=== PATIENT | female | born 1960 | race Caucasian/White ===

== ENCOUNTER 2021-02-08 19:30 | Emergency (ER) | payer BC ==
[~2021-02-08] VITALS: Ht 157.5 cm; Wt 72.2 kg
[2021-02-08 20:31] LABS: BILIRUBIN,URINE MODERATE (NEG); CLARITY,URINE CLOUDY; COLOR,URINE AMBER; NITRITE,URINE NEGATIVE (NEG); PH,URINE 5.5 (<5.0-8.0); PROTEIN,URINE 100 mg/dL (NEG-TRACE)
[2021-02-08 20:41] LABS: RBC,URINE TNTC /HPF (0-2)
[2021-02-08 20:44] LABS: BACTERIA,URINE FEW /HPF (0-FEW)
[2021-02-08] MEDS: IV NORMAL SALINE 1000ML BAG 1,000 ML IV ONE (21:00)
[2021-02-08 21:18] LABS: BASO # 0.1 x10^3/uL (0.0-0.2); BASO % 1 % (0-3); EOS # 0.2 x10^3/uL (0.0-0.7); EOS % 2 % (0-3); HEMATOCRIT 40.3 % (36.0-47.0); HEMOGLOBIN 13.6 g/dL (12.0-15.5); LYMPH # 2.6 x10^3/uL (1.0-4.8); LYMPH % 26 % (24-48); MEAN CORPUSCULAR HEMOGLOBIN 31 pg (25-35); MEAN CORPUSCULAR HGB CONC 34 g/dL (31-37); MEAN CORPUSCULAR VOLUME 90 fL (79-100); MONO # 0.9 x10^3/uL (0.0-1.1); MONO % 10 % (0-9); NEUT # 6.1 x10^3/uL (1.8-7.7); NEUT % 61 % (31-73); PLATELET COUNT 143 x10^3/uL (140-400); RED BLOOD COUNT 4.45 x10^6/uL (3.50-5.40); RED CELL DISTRIBUTION WIDTH 14.3 % (11.5-14.5)
[2021-02-08 21:25] LABS: CREATININE 0.7 mg/dL (0.6-1.0); GFR 85.1; POTASSIUM 4.1 mmol/L (3.5-5.1)
--- NOTE | 2021-02-08 21:42 | RAD ---
Abdominal and Pelvis CT, Without Contrast: History: Reason: LEFT FLANK PAIN, HEMATURIA / Spl. Instructions: / History: Comparison: None. Procedure: Axial images are obtained of the abdomen and pelvis, without IV or oral contrast. Oral Contrast: No Findings: Evaluation of solid organs is limited without contrast. The gallbladder is collapsed. There is a suture line above the cecum likely from prior appendectomy. Liver: Normal. Spleen: Normal. Pancreas: Normal. Adrenal Glands: Normal. Kidneys: There is a 2 mm nonobstructive stone in the left renal pelvis. There is minimal left hydrone phrosis. There is no free air or free fluid. There is no lymphadenopathy. The urinary bladder there is a 2 mm stone at the left UVJ.. There is no pericolonic inflammation identified. Impression: Minimal left hydronephrosis secondary to a 2 mm stone at left UVJ. End impression PQRS Compliance Statement: One or more of the following individualized dose reduction techniques were utilized for this examinat ion: 1. Automated exposure control 2. Adjustment of the mA and/or kV according to patient size 3. Use of iterative reconstruction technique Electronically signed by: Nader Davis III, MD (02/08/2021 9:39 PM) [facility]
[2021-02-08] MEDS: TAMSULOSIN 0.4 MG CAP.ER.24H. PO ONE (22:15)
[2021-02-08] MEDS ORDERED: HYDR-2761 PO (22:21)
[2021-02-08] MEDS ORDERED: ONDA4TAB12 PO (22:21)
[2021-02-08] MEDS ORDERED: TAMS0.4C97 PO (22:21)
--- NOTE | 2021-02-08 22:22 | ED.ADGEN ---
Past Medical History Additional Past Medical Histor: Obesity, Past Surgical History: Gastric Bypass Additional Past Surgical Histo: Gastric sleeve Smoking Status: Never Smoker Alcohol Use: Rarely Drug Use: None General Adult EDM: Chief Complaint: BLOOD IN URINE HPI: HPI: Patient is a 60 year old female, accompanied by her significant other, who presents to the emergency room with complaints of bloody urine that began today. She denies any increased urinary frequency, difficulty voiding, or dysuria. Patient reports she had developed 2 sharp twinges of pain in her lower left quadrant also. She currently denies any abdominal pain, flank pain, nausea, vomiting, diarrhea, back pain, fever, body aches, or fatigue. Patient reports concern because she had a gastric sleeve done about 4 months prior to arrival. She states that she has never had a history of a kidney stone. She currently denies any pain. Review of Systems: Review of Systems: Complete ROS is negative unless otherwise noted in HPI. Current Medications: Current Medications Medications (Trade) Dose Ordered Sig/Azeb Start Time Stop Time Status Last Admin Dose Admin Sodium Chloride 1,000 ml @ 1,000 mls/hr 1X ONCE 02/08/21 21:00 02/08/21 21:59 DC 02/08/21 21:00 1,000 MLS/HR Tamsulosin HCl (Flomax) 0.4 mg 1X ONCE 02/08/21 22:15 02/08/21 22:16 DC 02/08/21 22:15 0.4 MG Allergies: Allergies: Allergies Coded Allergies Type Severity Reaction Last Updated Verified No Known Drug Allergies 02/08/21 No Physical Exam: PE: See Above Constitutional: Well developed, well nourished, no acute distress, non-toxic appearance. [] HENT: Normocephalic, atraumatic, bilateral external ears normal, nose normal. [] Eyes: PERRLA, EOMI, conjunctiva normal, no discharge. [] Neck: Normal range of motion, no stridor. [] Cardiovascular:Heart rate regular rhythm Lungs & Thorax: Respirations even and unlabored, no retractions, no respiratory distress Abdomen: soft, no tenderness, no rebound tenderness, no guarding, no palpable masses Back: No CVA tenderness Skin: Warm, dry, no erythema, no rash. [] Extremities: No cyanosis, ROM intact, no edema. [] Neurologic: Alert and oriented X 3, normal motor, normal sensory, no focal deficits noted. [] Psychologic: Affect normal, judgement normal, mood normal. [] Current Patient Data: Labs: Laboratory Tests Test 02/08/21 20:10 02/08/21 21:05 Urine Collection Type Unknown Urine Color Naty Urine Clarity Cloudy Urine pH 5.5 (<5.0-8.0) Urine Specific [place] >=1.030 (1.000-1.030) Urine Protein 100 mg/dL (NEG-TRACE) Urine Glucose (UA) Negative mg/dL (NEG) Urine Ketones (Stick) 40 mg/dL (NEG) Urine Blood Large (NEG) Urine Nitrite Negative (NEG) Urine Bilirubin Moderate (NEG) Urine Urobilinogen Dipstick 1.0 mg/dL (0.2 mg/dL) Urine Leukocyte Esterase Small (NEG) Urine RBC Tntc /HPF (0-2) Urine WBC 1-4 /HPF (0-4) Urine Squamous Epithelial Cells Few /LPF Urine Bacteria Few /HPF (0-FEW) Urine Mucus Mod /LPF White Blood Count 10.0 x10^3/uL (4.0-11.0) Red Blood Count 4.45 x10^6/uL (3.50-5.40) Hemoglobin 13.6 g/dL (12.0-15.5) Hematocrit 40.3 % (36.0-47.0) Mean Corpuscular Volume 90 fL (79-100) Mean Corpuscular Hemoglobin 31 pg (25-35) Mean Corpuscular Hemoglobin Concent 34 g/dL (31-37) Red Cell Distribution Width 14.3 % (11.5-14.5) Platelet Count 143 x10^3/uL (140-400) Neutrophils (%) (Auto) 61 % (31-73) Lymphocytes (%) (Auto) 26 % (24-48) Monocytes (%) (Auto) 10 % (0-9) H Eosinophils (%) (Auto) 2 % (0-3) Basophils (%) (Auto) 1 % (0-3) Neutrophils # (Auto) 6.1 x10^3/uL (1.8-7.7) Lymphocytes # (Auto) 2.6 x10^3/uL (1.0-4.8) Monocytes # (Auto) 0.9 x10^3/uL (0.0-1.1) Eosinophils # (Auto) 0.2 x10^3/uL (0.0-0.7) Basophils # (Auto) 0.1 x10^3/uL (0.0-0.2) Sodium Level 144 mmol/L (136-145) Potassium Level 4.1 mmol/L (3.5-5.1) Chloride Level 108 mmol/L (98-107) H Carbon Dioxide Level 29 mmol/L (21-32) Anion Gap 7 (6-14) Blood Urea Nitrogen 22 mg/dL (7-20) H Creatinine 0.7 mg/dL (0.6-1.0) Estimated GFR (Cockcroft-Gault) 85.1 Glucose Level 83 mg/dL (70-99) Calcium Level 9.0 mg/dL (8.5-10.1) Laboratory Tests 02/08/21 21:05 Laboratory Tests 02/08/21 21:05 Vital Signs: Vital Signs Date Time Temp Pulse Resp B/P (MAP) Pulse Ox O2 Delivery O2 Flow Rate FiO2 02/08/21 22:33 98.5 78 16 135/87 (103) 98 Room Air 98.5 EKG: EKG: [] Heart Score: C/O Chest Pain: No Radiology/Procedures: Radiology/Procedures: PROCEDURE: CT ABDOMEN PELVIS WO CONTRAST Abdominal and Pelvis CT, Without Contrast: History: Reason: LEFT FLANK PAIN, HEMATURIA / Spl. Instructions: / History: Comparison: None. Procedure: Axial images are obtained of the abdomen and pelvis, without IV or oral contrast. Oral Contrast: No Findings: Evaluation of solid organs is limited without contrast. The gallbladder is collapsed. There is a suture line above the cecum likely from prior appendectomy. Liver: Normal. Spleen: Normal. Pancreas: Normal. Adrenal Glands: Normal. Kidneys: There is a 2 mm nonobstructive stone in the left renal pelvis. There is minimal left hydronephrosis. There is no free air or free fluid. There is no lymphadenopathy. The urinary bladder there is a 2 mm stone at the left UVJ.. There is no pericolonic inflammation identified. Impression: Minimal left hydronephrosis secondary to a 2 mm stone at left UVJ. End impression PQRS Compliance Statement: One or more of the following individualized dose reduction techniques were utilized for this examination: 1. Automated exposure control 2. Adjustment of the mA and/or kV according to patient size 3. Use of iterative reconstruction technique Electronically signed by: Nader Davis III, MD (02/08/2021 9:39 PM) [facility] [] Course & Med Decision Making: Course & Med Decision Making Pertinent Labs and Imaging studies reviewed. (See chart for details) [] Dragon Disclaimer: Dragon Disclaimer: This electronic medical record was generated, in whole or in part, using a voice recognition dictation system. Departure Departure Impression: Primary Impression: Kidney stone on left side Additional Impression: Hematuria Disposition: HOME / SELF CARE / HOMELESS Condition: STABLE Referrals: UNKNOWN PCP NAME (PCP) Patient Instructions: Kidney Stones, [id number] Additional Instructions: Fill the prescriptions and use as directed. Increase clear fluids. Strain your urine in the strainer provided, collect the stone and take with you to your primary care doctor or urologist for further evaluation. Follow up with your primary care doctor in 1-2 days. Return to the ER if symptoms worsen or fever develops. Scripts Hydrocodone Bit/Acetaminophen (HYDROCODONE-APAP 5-325 ) 1 Tab Tablet 1 TAB PO PRN Q6HRS PRN for PAIN for 3 Days, #12 TAB 0 Refills Prov: NATE MOJICA APRN 02/08/21 Ondansetron (ONDANSETRON ODT) 4 Mg Tab.rapdis 1 TAB PO PRN Q6-8HRS PRN for NAUSEA/VOMITING for 4 Days, #16 TAB 0 Refills Prov: NATE MOJICA APRN 02/08/21 Tamsulosin Hcl (FLOMAX) 0.4 Mg Cap.er.24h 1 CAP PO DAILY for 28 Days, #28 CAP 0 Refills Prov: NATE MOJICA APRN 02/08/21 Problem Qualifiers Additional Impression: Hematuria Hematuria type: unspecified type Qualified Codes: R31.9 - Hematuria, unspecified NATE MOJICA APRN February 08, 2021 22:22
[2021-02-08 22:33] VITALS: BP 135/87
== END 2021-02-08 22:40 | disposition home or self-care (01) ==
LOC: ER 19:30
DX: N13.2 Hydronephrosis with renal and ureteral calculous obstruction (principal); Z98.84 Bariatric surgery status
CPT/HCPCS: 36415; 74176; 80048; 81001; 85025; 87086; 96360; 99284; J7030